=== PATIENT | female | born 1980 | race African-American/Black ===

== ENCOUNTER 2020-10-19 16:22 | Emergency (ER) | payer OTHER, SELFPAY ==
--- NOTE | ~2020-10-19 | XR_ITS ---
XR knee RT min 4V 10/19/2020 17:04 Indication: Right knee pain Procedure: 4 views right knee Comparison: No prior studies for comparison. Findings: Moderate joint effusion. Mild osteoarthritis of the knee. No fracture or traumatic malalign ment. No foreign bodies. Impression: 1: Moderate joint effusion. Reviewed, dictated and finalized at location A. Impression: 1: Moderate joint effusion.
[2020-10-19 16:28] VITALS: BP 131/90; PULSE 80; RESP 18; TEMP 36.5; O2SAT 99
[2020-10-19] MEDS: KETOROLAC (*BKC) 60 MG/2 ML VIAL IM (18:28)
[2020-10-19 19:12] VITALS: BP 131/78; PULSE 87; RESP 18; O2SAT 100
--- NOTE | 2020-10-19 19:36 | ED.LOWEXIN ---
HPI - Extremity Injury (Lower) General Chief Complaint: Extremity Injury, Lower Stated Complaint: R KNEE PAIN/SWELLING X1WK Time Seen by Provider: 10/19/20 17:39 Source: patient Mode of arrival: ambulatory Limitations: no limitations History of Present Illness HPI Narrative: This is a 39 year old female that presents to the ER for right knee pain and swelling x 1 week. No known injury or trauma. Pain is worse with movement and relieved with rest. Denies fever, erythema, warmth, or numbness. Related Data Allergies Allergy/AdvReac Type Severity Reaction Status Date / Time No Known Allergies Allergy Verified 07/28/20 12:31 Review of Systems Review of Systems: Narrative: CONSTITUTIONAL: Denies fever SKIN: Denies rash MUSCULOSKELETAL: Reports joint pain, and myalgia. NEUROLOGIC: Denies numbness All systems reviewed & are unremarkable except as noted in HPI and below PMFSH Past Medical History Medical History (Updated 10/19/20 @ 19:48 by Destiny Dominguez PA-C) BMI 37.0-37.9, adult Knee pain, right Migraine Well adult exam Surgical History Surgical History (Updated 07/28/20 @ 12:37 by Clarisa Darling) History of bilateral tubal ligation Family History Family History (Updated 07/28/20 @ 12:34 by Clarisa Darling) Other Diabetes mellitus Hypertension Social History Social History (Updated 07/28/20 @ 12:42 by Clarisa Darling) Social History: no Smoking status: Never smoker Alcohol intake: current Drinks per week: 1 Substance use: never Gender identity (if verbalized by the patient): Female Exam Narrative: Exam Narrative: GENERAL: Well-appearing, well-nourished, and in no acute distress. HEAD: Normocephalic, atraumatic. EYES: EOMI. EXTREMITIES: Normal range of motion. No erythema or warmth. Mild edema about the right knee anteriorly. Normal DP pulses. Normal sensation SKIN: Warm, dry, no rash. NEURO: No focal deficits. Alert and oriented x3. PSYCH: Normal mood and affect Course Vital Signs Vital signs: Vital Signs Temperature 97.7 F 10/19/20 16:28 Pulse Rate 80 10/19/20 16:28 Respiratory Rate 18 10/19/20 16:28 Blood Pressure 131/90 10/19/20 16:28 Pulse Oximetry 99 10/19/20 16:28 Temperature 97.7 F 10/19/20 16:28 Pulse Rate 87 10/19/20 19:12 Respiratory Rate 18 10/19/20 19:12 Blood Pressure 131/78 10/19/20 19:12 Pulse Oximetry 100 10/19/20 19:12 MDM - Extremity Injury (Lower) MDM Narrative Medical decision making narrative: Patient presents to the emergency department for right knee pain x1 week. No known injury or trauma. No erythema or warmth of the knee. She is afebrile and nontoxic-appearing. She has good range of motion in the knee. Right knee x-ray shows a moderate sized joint effusion and osteoarthritis. Patient updated on case findings. Instructed to rest, ice and take ungu-eng-ircnsml pain medication as needed. Placed in an Irineo wrap. She will be given orthopedics for follow-up. She was given warnings to return to the ER Imaging Data Radiologist's impression: ITS Impressions Knee X-Ray 10/19/20 17:06 Impression: 1: Moderate joint effusion. Critical Care Time Critical Care Time Critical Care Time: No Discharge Plan Discharge Clinical Impression: Acute pain of right knee, Effusion of knee joint right Patient Disposition: Home, Self-Care Condition: Stable Instructions: Swollen Knee Joint (ED) Additional Instructions: Return to the emergency department if you experience fever, redness and swelling of your knee, you are unable to bend your knee, or any other symptoms that are concerning to you Rest. Ice to the area. Tylenol or ibuprofen as needed for pain. Follow-up with orthopedics. Call to make an appointment Prescriptions: No Action sumatriptan succinate 6 mg/0.5 mL pen injector 6 mg subcut ONCE Qty: 1 RF: 2 sumatriptan succinate [Imitrex] 100 mg tablet See Rx Instructions PO .C
== END 2020-10-19 19:53 | disposition home or self-care (01) ==
PROVIDERS: Emergency Provider Emergency Medicine; PCP Family Medicine
DX: M25.561 Pain in right knee (principal); M25.461 Effusion, right knee
CPT/HCPCS: 73564; 96372; 99283; J1885

== ENCOUNTER 2020-11-20 08:34 | Outpatient (CLI) | payer OTHER, SELFPAY ==
[2020-11-20 09:32] LABS: Basophils Percent Auto 0.6 % (0.2-1.2); Eosinophils Absolute Auto 0.1 K/mm3 (0-0.3); Eosinophils Percent Auto 1.6 % (0-4.4); Hematocrit 41.3 % (37.0-47.0); Hemoglobin 13.1 g/dL (12.0-15.0); Immature Granulocyte Absolute 0.02 K/mm3 (0.00-0.031); Immature Granulocyte Percent A 0.3 % (0-0.5); Lymphocytes Absolute Auto 2.11 K/mm3 (0.9-3.2); Lymphocytes Percent Auto 30.8 % (18.3-44.2); Mean Corpuscular HGB Conc 31.7 g/dl (32-36); Mean Corpuscular Hemoglobin 28.2 pg (26-34); Mean Corpuscular Volume 88.8 fl (80-100); Mean Platelet Volume 9.7 fl (7.4-10.4); Monocytes Absolute Auto 0.4 K/mm3 (0.1-0.6); Monocytes Percent Auto 5.7 % (2.6-8.5); Neutrophils Absolute Auto 4.2 K/mm3 (1.3-6.7); Platelet Count Result 330 k/mm3 (150-375); Red Blood Count 4.65 M/mm3 (4.2-5.4); Red Cell Distribution Width 13.3 % (11.5-14.5); White Blood Count 6.9 K/mm3 (4.5-10.0)
[2020-11-20 09:41] LABS: Rheumatoid Factor < 8.6 IU/ML (<12)
[2020-11-20 09:42] LABS: Anion Gap 10 mmol/L (8-16); Blood Urea Nitrogen 16 mg/dL (7-17); Calcium 9.7 mg/dL (8.4-10.2); Carbon Dioxide 28 mmol/L (22-30); Chloride 104 mmol/L (98-107); Cholesterol 137 mg/dL (0-200); Estimated Glomerular Filt Rate > 60; Glucose 89 mg/dL (65-105); HDL Direct 90 mg/dL; Sodium 142 mmol/L (137-145); Triglycerides 68 mg/dL (<150)
[2020-11-20 09:46] LABS: CRP 0.7 mg/dL (<1.0); Uric Acid 4.5 mg/dL (2.5-7.5)
[2020-11-20 10:06] LABS: LDL Cholesterol Direct < 30 mg/dL
[2020-11-20 10:22] LABS: Erythrocyte Sedimentation Rate 16 mm/hr (0-20)
== END 2020-11-20 08:35 | disposition home or self-care (01) ==
PROVIDERS: PCP Family Medicine; Referring Provider Nurse Practitioner Family; Visit Provider Orthopaedic Surgery
DX: M17.0 Bilateral primary osteoarthritis of knee (principal); M06.9 Rheumatoid arthritis, unspecified; Z13.29 Encounter for screening for other suspected endocrine disorder; Z13.220 Encounter for screening for lipoid disorders; Z13.1 Encounter for screening for diabetes mellitus
CPT/HCPCS: 36415; 80048; 80061; 84443; 84550; 85025; 85652; 86038; 86140; 86430

== ENCOUNTER 2020-12-15 06:33 | Outpatient (CLI) | payer OTHER, SELFPAY ==
--- NOTE | ~2020-12-15 | CT_ITS ---
EXAMINATION: CT sinus wo con DATE: 12/15/2020 07:01 INDICATION: Sinusitis TECHNIQUE: Computed tomography (CT) of the paranasal sinuses was performed without intravenous contra st. The dose-length product was 320.10 mGy-cm. Automated exposure control and iterative reconstructio n technique were employed. COMPARISON: None FINDINGS: There is extensive mucosal thickening of the right maxillary sinus and nasopharynx. There a re surgical changes consistent with resection of the right ostiomeatal unit. Leftward nasal septal de viation. Mastoids are pneumatized. IMPRESSION: 1. Moderate sinus disease involving the right maxillary sinus and nasopharynx. Reviewed, dictated and finalized at location A.
== END 2020-12-15 06:34 | disposition home or self-care (01) ==
LOC: ANHIMG 06:39
PROVIDERS: PCP Family Medicine; Visit Provider Otolaryngology
DX: J34.89 Other specified disorders of nose and nasal sinuses (principal); J33.9 Nasal polyp, unspecified; J34.2 Deviated nasal septum; J34.3 Hypertrophy of nasal turbinates
CPT/HCPCS: 70486

== ENCOUNTER 2021-01-22 02:44 | Day surgery (SDC) | payer OTHER, SELFPAY ==
[2021-01-18 15:53] VITALS: BMI 37.5
--- NOTE | 2021-01-21 08:12 | PM.IMHP ---
H&P: HPI History of Present Illness Date/Time: 01/21/21 08:12 patient presents for planned surgical procedures no change in symptoms no change in history Chief Complaint: right sinonasal mass, nasal obstruction, sinusitis Review of Systems Constitutional: Constitutional: Denies fatigue, Denies fever(s) and Denies lethargy Eyes: Eyes: Denies blurry vision and Denies change in vision ENT: Reports as per HPI Cardiovascular: Cardiovascular: Denies chest pain Respiratory: Respiratory: Denies cough Endocrine: Endocrine: Denies fatigue Hematologic/Lymphatic: Hematologic/Lymphatic: Denies easy bleeding, Denies easy bruising and Denies lymphadenopathy Allergic/Immunologic: Allergic/Immunologic: Denies seasonal rhinorrhea [facility] Past Medical History Medical History BMI 35.0-35.9,adult BMI 36.0-36.9,adult BMI 37.0-37.9, adult Knee pain, right Migraine Osteoarthritis of right knee Well adult exam Surgical History Surgical History History of bilateral tubal ligation Family History Family History Father Diabetes mellitus Hypertension Mother Diabetes mellitus Grandparent Diabetes mellitus Social History Social History Social History: no Smoking status: Former smoker Smokeless tobacco user: dissolvable tobacco Alcohol intake: current Drinks per week: 1 Substance use: never 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 Gender identity (if verbalized by the patient): Female Spiritual care concerns: No Meds Home Medications and Allergies Home Medications Medication Instructions Recorded Confirmed Type sumatriptan succinate 100 mg tablet See Rx Instructions PO .COMPLEX #9 07/28/20 01/18/21 Rx tablet sumatriptan succinate 6 mg/0.5 mL 6 mg SUBCUT ONCE #1 ml 07/28/20 01/18/21 Rx subcutaneous pen injector phentermine 37.5 mg tablet 37.5 mg PO DAILY #20 tablet 12/25/20 01/18/21 Rx Allergies Allergy/AdvReac Type Severity Reaction Status Date / Time No Known Allergies Allergy Verified 01/18/21 15:51 Exam Const: General: cooperative, healthy appearing, comfortable, well developed and alert HENMT: Head: normal to inspection, normocephalic and atraumatic Ears: hearing grossly normal bilaterally, external ears normal, TM's normal bilaterally and EAC's normal General nose exam: Normal external nose present, Normal nares present, nasal polyps ( yellowish mass right mid/posterior), Normal nasal mucous membranes and turbinates present and Normal septum present Face and sinus: normal facial exam Mouth: Yes Normal oral and palatal mucosa present, Yes lip normal, Yes tongue normal, Yes oropharynx normal and Yes moist mucous membranes Teeth and gingiva: dentition normal and gingiva normal Throat: posterior oropharynx normal, tonsils normal and uvula midline Eyes: General: appearance normal, both eyes and all related structures Periorbital: periorbital findings normal Eyelids: eyelids normal Conjunctivae: conjunctivae normal Sclera: sclerae normal Neck: Neck: normal visual inspection, full ROM and no lymphadenopathy Thyroid: thyroid normal Lymphatic: no lymphadenopathy noted Resp: Effort & Inspection: normal respiratory effort and able to speak in complete sentences Cardio: Jugular venous distension: no JVD Neuro: Cranial nerves: Yes CN's II-XII intact bilaterally Assessment and Plan Assessment and plan (1) Nasal septal deviation: Code(s): J34.2 - Deviated nasal septum Status: Acute Assessment and Plan: plan is for the OR for image guided right-sided removal of sinonasal mass, maxillary antrostomy, possible septoplasty, possible inferior turbinate reduction, possible Stephenson lock on the right. Risks were discussed including blind
[2021-01-22] VITALS (9 sets, daily range): BP systolic 118–164; BP diastolic 65–94; PULSE 58–80; RESP 15–20; TEMP 36.5–36.8; O2SAT 97–100
--- NOTE | 2021-01-22 07:15 | WPDHPUPDATE1 ---
History and Physical Update Update Date/Time: 01/22/21 07:15 History and Physical has been reviewed, including an updated exam of the patient. There are NO changes in the patient's condition. Risks, benefits, and alternatives have been discussed and questions answered. Patient agrees to proceed with procedure.
[2021-01-22] MEDS: ACETAMINOPHEN 500 MG TABLET 1000 MG PO (09:04)
--- NOTE | 2021-01-22 09:08 | WPDANESEPPF ---
Anes - Initial Pre Proc Eval Procedure: Operation Date: 01/22/21 10:15 Proposed Procedures p Image Guided Bilateral Inferior Turbinectomy, Right Endoscopic Maxillary Antrostomy, Resection of Nasal Mass, - Thang Alejandra MD s Septoplasty - Thang Alejandra MD s Possible Right Stephenson-Dar Procedure - Thang Alejandra MD Date/Time: 01/22/21 09:08 Surgeon: Thang Alejandra MD Pre Op Diagnosis: chronic sinusitis Patient Data Age: 40 Gender: F Height: 1.57 m Weight: 93.2 kg Allergies Allergy/AdvReac Type Severity Reaction Status Date / Time No Known Allergies Allergy Verified 01/22/21 08:53 Home Medications Medication Instructions Recorded Confirmed Type sumatriptan succinate 100 mg tablet See Rx Instructions PO .COMPLEX #9 07/28/20 01/22/21 Rx tablet sumatriptan succinate 6 mg/0.5 mL 6 mg SUBCUT ONCE #1 ml 07/28/20 01/22/21 Rx subcutaneous pen injector phentermine 37.5 mg tablet 37.5 mg PO DAILY #20 tablet 12/25/20 01/22/21 Rx Patient hx anesthesia problems: none Family hx anesthesia problems: none PMFSH Past Medical History Medical History BMI 35.0-35.9,adult BMI 36.0-36.9,adult BMI 37.0-37.9, adult Knee pain, right Migraine Osteoarthritis of right knee Well adult exam Surgical History Surgical History History of bilateral tubal ligation Family History Family History Father Diabetes mellitus Hypertension Mother Diabetes mellitus Grandparent Diabetes mellitus Social History Social History Social History: no Smoking status: Former smoker Smokeless tobacco user: dissolvable tobacco Alcohol intake: current Drinks per week: 1 Substance use: never Living arrangements: with friend(s) 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 Questions were solicited and answers provided to the satisfaction of the patient/family/POA.
[2021-01-22] MEDS: LACTATED RINGERS 1,000 ML 30 ML IV CONT ×2 (09:21→11:04)
[2021-01-22] MEDS: ceFAZolin 2 GM/D5W 50 ML 2 GM/50 ML BAG IVPB (09:42)
[2021-01-22] MEDS: OXYMETAZOLINE HCL 0.05% NAS 15 ML BTL (*BKC) 15 SPRAY NASAL (10:11)
[2021-01-22] MEDS: ONDANSETRON INJ 4 MG/2 ML VIAL IV PUSH (11:32)
--- NOTE | 2021-01-22 11:33 | P.OP_ITS ---
Procedure Note - Detailed Date of Procedure 01/22/21 Pre-op Diagnosis chronic sinusitis right sinonasal mass nasal obstruction Post-op Diagnosis same Procedure Performed Right-sided maxillary antrostomy with tissue removal Right-sided resection of sinonasal mass Right inferior turbinate outfracture Surgeon Thang Alejandra MD Music Education Adjunct Professor None Anesthesia general Indications See above Description of Procedure Patient correctly identified consent verified in the preoperative holding area. The patient was brought to the operating room time-out performed. Image guidance initiated general anesthesia induced endotracheal tube secured the pat ient's airway and taped to the left lower lip. Afrin-soaked pledgets placed in the bilateral nasal passages allowed to sit for 5 minutes. Patient dry prepped prepped and draped for the aforementioned procedures. Second time-out performed. Right sinonasal mass was viewed with a 0 degree endoscope very obvious the bulk the right portion in the sinonasal passages sent for pathology. Right middle turbinate medialized. Backbiter utilized along with straight through cut micro debrider to perform right large maxillary antrostomy micro debrider as well as 70 degree scope and 60 degree curved microdebrider blade utilized to remove the sinonasal mass at this time was noted that it was pedicled from the anterior lateral maxillary sinus wall on the right. Combination of microdebrider 70 degree scope and suction Bovie electrocautery at a setting of 10 and 15 were utilized to remove the stalk and Shanique all stalk tissue as well as 1 cm around the stalk. All the hardware instrumentation was removed hemostasis was noted to be excellent. Bilateral choana suctioned of any blood. Care the patient was turned over to Anesthesiology. I performed all dictated portions of the procedure. Blood loss approximately 20 cc. There were no immediate complications. Implants None Estimated Blood Loss 20 Drains No Packing No Pathology yes Complications No immediate complications Condition stable Disposition PACU
== END 2021-01-22 13:05 | disposition home or self-care (01) ==
PROVIDERS: PCP Family Medicine; Visit Provider Otolaryngology
PROC: (CPT 31267; principal; 2021-01-22 10:15)
DX: J32.9 Chronic sinusitis, unspecified (principal); J34.89 Other specified disorders of nose and nasal sinuses; J33.9 Nasal polyp, unspecified; Z87.891 Personal history of nicotine dependence; E66.9 Obesity, unspecified; Z68.38 Body mass index [BMI] 38.0-38.9, adult
CPT/HCPCS: 31267; 30930; 88304; A9270; J0330; J0690; J1100; J2250; J2405; J2704; J3010; J7120

== ENCOUNTER 2022-12-16 13:23 | Outpatient (CLI) | payer OTHER, SELFPAY ==
[2022-12-16 14:05] LABS: Basophils Percent Auto 0.4 % (0.2-1.2); Eosinophils Absolute Auto 0.1 K/mm3 (0-0.3); Hemoglobin 12.9 g/dL (12.0-15.0); Immature Granulocyte Absolute 0.02 K/mm3 (0.00-0.031); Immature Granulocyte Percent A 0.3 % (0-0.5); Lymphocytes Absolute Auto 2.04 K/mm3 (0.9-3.2); Lymphocytes Percent Auto 29.2 % (18.3-44.2); Mean Corpuscular HGB Conc 32.3 g/dl (32-36); Mean Corpuscular Hemoglobin 28.7 pg (26-34); Mean Corpuscular Volume 89.1 fl (80-100); Mean Platelet Volume 9.7 fl (7.4-10.4); Monocytes Absolute Auto 0.4 K/mm3 (0.1-0.6); Monocytes Percent Auto 5.4 % (2.6-8.5); Neutrophils Absolute Auto 4.5 K/mm3 (1.3-6.7); Neutrophils Percent Auto 63.7 % (45.5-73.1); Platelet Count Result 309 k/mm3 (150-375); Red Blood Count 4.49 M/mm3 (4.2-5.4); Red Cell Distribution Width 13.1 % (11.5-14.5)
== END 2022-12-16 13:24 | disposition home or self-care (01) ==
LOC: ANHSURGERY 13:25
PROVIDERS: PCP Family Medicine; Visit Provider Obstetrics & Gynecology
DX: N92.6 Irregular menstruation, unspecified (principal); Z01.818 Encounter for other preprocedural examination
CPT/HCPCS: 36415; 85025; 86850; 86900; 86901

== ENCOUNTER 2022-12-23 00:47 | Day surgery (SDC) | payer OTHER, SELFPAY ==
[2022-12-15 11:31] VITALS: BMI 25.0
--- NOTE | 2022-12-15 11:46 | PC.NURSE ---
Report to the Outpatient Waiting Room, entrance under the green pavilion located off [facility], at time 6:00 on date 12/23/22. Planned Procedure Time: 7:30. Time changes happen often and if your time is changed the preop area will call you the afternoon before. - You and your visitor will be asked to self-screen and do not enter if you have any COVID symptoms. - A mask is optional within the hospital at this time. Patients may have clear liquids (water, carbonated beverages, clear teas, apple juice) until 3 hours prior to surgery (4:30) with a maximum of 20 ounces. - No food from midnight until time of surgery Take the following medications with a SIP of water the morning of surgery: TOPIRAMATE DO NOT STOP ANY OF YOUR OTHER PRESCRIPTION MEDICATIONS PRIOR TO SURGERY ?EXCEPT THE FOLLOWING Medications to discontinue per physician: VITAMINS/SUPPLEMENTS Date to take last dose: 12/19/22 Please no make-up, nail armenian, hairspray, perfume, deodorant, or body powder the day of surgery. No jewelry (including any body piercings) or valuables the day of surgery, leave them at home. Please take a shower or bath the night before, or the morning of, surgery with an antibacterial soap. Wear comfortable, loose fitting clothing. - Jewelry must be removed prior to entering the operating room. Rings and piercings that are not removed may be cut off. - The hospital will not accept responsibility for valuables. - Please leave all valuables, including medications, at home the day of surgery. If you are going home after surgery, a licensed patient transportation driver must drive you home. - NO public transportation without another adult if you receive anesthesia. - We recommend that an adult stay with you for 24 hours following discharge. - We also recommend that you do not drive, make important decision, drink alcoholic beverages, or take any drugs that were not prescribed by your health care provider for at least 24 hours after your discharge time. Follow any additional instructions given to you from your surgeon. If you or anyone in your household have experienced Covid symptoms in the past week, please notify your surgeon or the nurse liaison at the phone number below for possible testing. Telephone instructions given to PT - NICOLETTE WILSON and asked if any additional questions and then verbalized understanding. Patient advised to call surgeon office or pre surgery nurse liaison [phone] if any additional questions.
--- NOTE | 2022-12-20 16:12 | PM.IMHP ---
H&P: HPI History of Present Illness Date/Time: 12/20/22 16:12 Chief Complaint: Bleeding and pain Narrative: this is a 42-year-old female admitted for robotic hysterectomy and bilateral salpingectomy secondary to bleeding. She has known submucosal fibroid. She continues to bleed was given options of hormonal manipulation ablation and possibly an IUD. She refused all the rest and since she has enlarged fibroid uterus like to have this removed in completion. She understands this will make her permanently infertile although she has had a previous tubal ligation. Risks and benefits of this procedure reviewed including not exclusive of , aspiration pneumonia, bleeding, transfusion, perforation under to bowel, bladder, ureters or other internal organs with need for open laparotomy. She received the ACOG handout entitled hysterectomy as well as the de [facility] handout. She had all questions answered. She asked to proceed PMFSH Past Medical History Medical History BMI 27.0-27.9,adult BMI 35.0-35.9,adult BMI 36.0-36.9,adult BMI 37.0-37.9, adult Knee pain, right Migraine Osteoarthritis of right knee Well adult exam Surgical History Surgical History History of bilateral tubal ligation History of nasal surgery Family History Family History Father Diabetes mellitus Hypertension Heart disease Mother Diabetes mellitus Rheumatoid arthritis Grandparent Diabetes mellitus Sibling No problems noted. Social History Social History Social History: no Smoking status: Never smoker Second hand tobacco smoke exposure: No Alcohol intake: current Drinks per week: 1 Substance use: never Substance use type: does not use Lack of Transportation: No Lack of Food: Never True Current Housing: I Have Housing Concerned About Future Housing: No Difficulty Paying Gas/Electric Bills: No Difficulty Paying for Meds: YES Currently Unemployed: YES Education: Associate Degree Difficulty w/ Childcare or Family Care: YES Living arrangements: with family Additional living arrangements comments: CHILDREN Occupation/Education: occupation 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 [employer] Gender identity (if verbalized by the patient): Female Spiritual care concerns: No Meds Home Medications and Allergies Home Medications Medication Instructions Recorded Confirmed Type sumatriptan succinate 100 mg See Rx Instructions PO .COMPLEX #9 05/19/21 12/15/22 Rx tablet (Imitrex) tabs topiramate 100 mg tablet (Topamax) 100 mg PO DAILY #30 tabs 11/08/22 12/15/22 Rx biotin 800 mcg tablet 800 mcg PO DAILY 12/15/22 12/15/22 History cholecalciferol (vitamin D3) 50 50 mcg PO DAILY 12/15/22 12/15/22 History mcg (2,000 unit) tablet (Vitamin D3) multivitamin 1 tablet PO DAILY 12/15/22 12/15/22 History phentermine 37.5 mg tablet 37.5 mg PO DAILY 12/15/22 12/15/22 History vitamin E 670 mg (1,000 unit) 670 mg PO DAILY 12/15/22 12/15/22 History capsule Allergies Allergy/AdvReac Type Severity Reaction Status Date / Time No Known Allergies Allergy Verified 12/15/22 11:27 Exam Const: General: cooperative, healthy appearing and comfortable Nutritional Appearance: average body habitus Orientation/consciousness: oriented to person, oriented to place and oriented to time HENMT: Head: normal to inspection Resp: Effort & Inspection: normal respiratory effort Cardio: Rate: regular rate Rhythm: regular rhythm Heart sounds: S1 normal heart sound present and S2 normal heart sound present GI: Inspection: normal to inspection : External Female Exam: normal external appearance Speculum Exam - Vagina: normal appearance of the vagina Speculum Exam - Cervi
[2022-12-23] VITALS (12 sets, daily range): BP systolic 101–137; BP diastolic 44–77; PULSE 58–76; RESP 12–18; TEMP 36.2–36.9; O2SAT 100
--- NOTE | 2022-12-23 06:32 | WPDHPUPDATE1 ---
History and Physical Update Update Date/Time: 12/23/22 06:32 History and Physical has been reviewed, including an updated exam of the patient. There are NO changes in the patient's condition. Risks, benefits, and alternatives have been discussed and questions answered. Patient agrees to proceed with procedure.
--- NOTE | 2022-12-23 06:46 | WPDANESEPPF ---
Anes - Initial Pre Proc Eval Procedure: Operation Date: 12/23/22 07:30 Proposed Procedures p Robotic Assisted Total Vaginal Hysterectomy with Bilateral Salpingectomy - Angel Fournier MD Date/Time: 12/23/22 06:46 Surgeon: Angel Fournier MD Pre Op Diagnosis: Pain, Irrg Bleeding, Fibroids Patient Data Age: 42 Gender: F Height: 1.57 m Weight: 62.15 kg Allergies Allergy/AdvReac Type Severity Reaction Status Date / Time No Known Allergies Allergy Verified 12/15/22 11:27 Home Medications Medication Instructions Recorded Confirmed Type sumatriptan succinate 100 mg See Rx Instructions PO .COMPLEX #9 05/19/21 12/15/22 Rx tablet (Imitrex) tabs topiramate 100 mg tablet (Topamax) 100 mg PO DAILY #30 tabs 11/08/22 12/15/22 Rx biotin 800 mcg tablet 800 mcg PO DAILY 12/15/22 12/15/22 History cholecalciferol (vitamin D3) 50 50 mcg PO DAILY 12/15/22 12/15/22 History mcg (2,000 unit) tablet (Vitamin D3) multivitamin 1 tablet PO DAILY 12/15/22 12/15/22 History phentermine 37.5 mg tablet 37.5 mg PO DAILY 12/15/22 12/15/22 History vitamin E 670 mg (1,000 unit) 670 mg PO DAILY 12/15/22 12/15/22 History capsule hydrocodone 5 mg-acetaminophen 325 1 tablet PO Q4H PRN pain #30 tabs 12/23/22 Rx mg tablet Patient hx anesthesia problems: none Family hx anesthesia problems: none Results Review: All pre-operative results and documents have been reviewed as part of the pre-operative evaluation. [facility] Past Medical History Medical History Knee pain, right Migraine Osteoarthritis of right knee Well adult exam Surgical History Surgical History History of bilateral tubal ligation History of nasal surgery Family History Family History Father Diabetes mellitus Hypertension Heart disease Mother Diabetes mellitus Rheumatoid arthritis Grandparent Diabetes mellitus Sibling No problems noted. Social History Social History Social History: no Smoking status: Never smoker Second hand tobacco smoke exposure: No Alcohol intake: current Drinks per week: 1 Substance use: never Substance use type: does not use Lack of Transportation: No Lack of Food: Never True Current Housing: I Have Housing Concerned About Future Housing: No Difficulty Paying Gas/Electric Bills: No Difficulty Paying for Meds: YES Currently Unemployed: YES Education: Associate Degree Difficulty w/ Childcare or Family Care: YES Living arrangements: with family Additional living arrangements comments: CHILDREN Occupation/Education: occupation 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 Informed Consent: The patient's anesthetic plan and its attendant risks and benefits were discussed with the patient/family/POA. Questions were solicited and answers provided to the satisfaction of the patient/family/POA.
[2022-12-23] MEDS: ACETAMINOPHEN 500 MG TABLET 1000 MG PO (06:48)
[2022-12-23] MEDS: LACTATED RINGERS 1,000 ML 30 ML IV CONT ×2 (06:50→08:39)
[2022-12-23] MEDS: KETOROLAC 15 MG/ML VIAL (*BKC) IV PUSH (06:55)
[2022-12-23] MEDS: SCOPOLAMINE 1.5 MG PATCH TRANSDERM (07:14)
[2022-12-23] MEDS: ceFAZolin 2 GM/D5W 50 ML 2 GM/50 ML BAG IVPB (07:24)
--- NOTE | 2022-12-23 08:30 | P.OP_ITS ---
Procedure Note - Detailed Date of Procedure 12/23/22 Pre-op Diagnosis Pain, Irrg Bleeding, Fibroids Post-op Diagnosis Same Procedure Performed Robotic total vaginal hysterectomy and bilateral salpingectomy Surgeon Angel Fournier MD Anesthesia General Indications this 42-year-old uterine symptomatic fibroids Findings enlarged uterus. Tubes status post tubal ligation. Normal-appearing ovaries Description of Procedure patient was prepped draped sterile fashion placed in the dorsal lithotomy position. Under excellent general endotracheal anesthesia weighted speculum placed in posterior fornix vagina. Anterior lip of the cervix grasped with single-tooth tenaculum. Uterus sounded to 10cm. Serial dilatation with fragmented dilators performed followed by passage of 8. JOSSELIN and the 2. 0.5 cold cup. Next the 16 Greenlandic catheter was placed in the bladder and the single- tooth was removed. The weighted speculum was removed and gloves were changed. A supraumbilical incision made in the Veress needle passed in the abdomen. Abdomen filled with CO2 gas [id number]. The 8mm trocar advanced in the abdomen. Downside visualized. No injury seen. Patient placed in Trendelenburg at20? and right left lateral quadrant incisions made. 8Mm trocars advanced under direct visualization assuring no injury. A right upper quadrant incision made the 8mm trocar advanced under direct visualization assuring no injury. The robot was docked. Attention was turned to the middle school counselor. The left round ligament was grasped, burned, cut. Anteriorly a bladder flap was formed by sharply dissecting the p eritoneum and reflecting this laterally caudally to the opposite round ligament which was clamped, burned, cut. Next the left fallopian tube was sharply dissected away from the ovarian complex and left attached to its uterine origin. This was repeated on the contralateral side with the right tube. The left utero-ovarian ligament was skeletonized conserving the left ovary. This was clamped, burned, cut. This was brought to the level of previously cut round ligament. In like fashion conserving the right ovary, the utero-ovarian ligament was clamped, burned, cut brought to level previously cut round ligament. Next the cardinal broad ligaments on the left were serially skeletonized clamping burning cutting until the tortuous blood vessels on left could be seen. These were individually clamped, burned, cut. In similar fashion on the right cardinal broad ligaments were skeletonized clamping burning itching and hugging the cervix and uterus until the uterine vessels could be seen right. These were individually clamped, burned,. Excellent blanching the uterus was noted at that point in a colpotomy incision made. Cervix uterus tubes removed through the vagina. Vagina then closed with continuous running 0V lock from lateral edge to lateral edge back to the midline. Irrigation undertaken until clear blood loss estimated to be [id number]. The robot was undocked. The gas removed from the abdomen. Patient was returned to supine level and the incisions then closed with 4-0 Monocryl and glue. Patient was awakened went to recovery in satisfactory condition. All sponge, needle, instrument counts were correct. There were no immediate complications noted Estimated Blood Loss 25 Drains No Packing No Pathology Yes Complications No immediate complications Condition Stable Disposition PACU
[2022-12-23] MEDS: fentaNYL CITRATE INJ (*CRX) 100 MCG/2 ML VIAL 25 MCG IV PUSH ×4 (09:15→09:40)
--- NOTE | 2022-12-23 10:00 | ADMGEN ---
This patient, Ibis Smith, was admitted to OB 2nd Floor Room 289-00. Patient/family oriented to hospital policies and general routines including ID bracelet, bed and alarms, visiting hours, pain management, procedures, bathroom and other care routines, personal items, smoking policy, room service/diet, and visiting hours. Information on how to activate the Rapid Response Team has been discussed. Patient/Family are encouraged to report perceived risks to care and to ask questions if they do not understand what they are told or what they should do.
[2022-12-23] MEDS: DEXTROSE 5%/LACTATED RINGERS 1,000 ML 125 ML IV CONT (10:23)
[2022-12-23] MEDS: KETOROLAC 30 MG/ML VIAL (*BKC) IV PUSH (10:26)
[2022-12-23] MEDS: ENOXAPARIN 40 MG/0.4 ML SYRINGE SUB-Q (10:26)
--- NOTE | 2022-12-23 10:52 | PM.DS ---
DS: Admitting Diagnosis Discharge Date 12/24/2022 Admitting Diagnosis symptomatic fibroids DS: Discharge Diagnosis Discharge Diagnosis (1) Uterine fibroid: Code(s): D25.9 - Leiomyoma of uterus, unspecified Status: Acute (2) Vaginal bleeding: Code(s): N93.9 - Abnormal uterine and vaginal bleeding, unspecified Status: Acute (3) Pelvic pain: Code(s): R10.2 - Pelvic and perineal pain Status: Acute DS: Summary Hospital Course Reason for hospitalization: patient was admitted for robotic total vaginectomy and bilateral salpingectomy Hospital Course: patient underwent the above-named procedure on 12/23/2022. Her hospital course was unremarkable. She remained afebrile. She was up, voiding without difficulty, ambulating, eating regular diet, and generally without complaints. Time Spent with Patient Time attestation: Total time spent providing and/or coordinating discharge services: Exam Const: General: cooperative, healthy appearing and comfortable Nutritional Appearance: average body habitus Orientation/consciousness: oriented to person, oriented to place and oriented to time HENMT: Head: normal to inspection Resp: Effort & Inspection: normal respiratory effort Cardio: Rate: regular rate Rhythm: regular rhythm Heart sounds: S1 normal heart sound present and S2 normal heart sound present GI: Inspection: normal to inspection and incision ( Wounds are clean dry and intact) DS: Data Data Completed and Pending Pending studies at discharge: Pending at discharge 12/23/22 08:00 Surgical [PTH] Routine Discharge Plan Discharge Patient Disposition: Home, Self-Care Stand Alone Forms: General Discharge Instructions Follow-up/Referrals: Angel Matthews MD [Physician] - Discharge Medications: New hydrocodone-acetaminophen 5-325 mg tablet 1 tablet PO Q4H PRN (Reason: pain) Qty: 30 0RF No Action sumatriptan succinate [Imitrex] 100 mg tablet See Rx Instructions PO .COMPLEX Qty: 9 2RF Rx Instructions: take 1 tab at onset of headache; if no relief, may repeat 1 tab after at least 2 hrs; max = 2 tabs/24 hrs PO multivitamin Tablet 1 tablet PO DAILY vitamin E 670 mg (1,000 unit) Capsule 670 mg PO DAILY biotin 800 mcg Tablet 800 mcg PO DAILY phentermine 37.5 mg tablet 37.5 mg PO DAILY cholecalciferol (vitamin D3) [Vitamin D3] 50 mcg (2,000 unit) Tablet 50 mcg PO DAILY topiramate [Topamax] 100 mg tablet 100 mg PO DAILY Qty: 30 3RF
[2022-12-23] MEDS: HYDROcodone/acetaminophen (*CRX) 10-325 MG TABLET 1 TAB PO (15:03)
[2022-12-23] MEDS: SIMETHICONE 80 MG TAB.CHEW PO ×2 (15:03→21:00)
[2022-12-23] MEDS: DOCUSATE SODIUM 100 MG CAPSULE PO ×2 (17:35→21:01)
[2022-12-24] MEDS: IBUPROFEN 600 MG TABLET PO ×2 (00:01→07:20)
[2022-12-24] MEDS: HYDROcodone/acetaminophen (*CRX) 5-325 MG TABLET 1 TAB PO ×2 (00:25→07:20)
[2022-12-24 03:30] VITALS: BP 114/67; PULSE 55; RESP 16; TEMP 36.4; O2SAT 100
[2022-12-24 04:41] LABS: Basophils Percent Auto 0.4 % (0.2-1.2); Eosinophils Absolute Auto 0.1 K/mm3 (0-0.3); Eosinophils Percent Auto 0.6 % (0-4.4); Hematocrit 34.2 % (37.0-47.0); Immature Granulocyte Absolute 0.04 K/mm3 (0.00-0.031); Immature Granulocyte Percent A 0.4 % (0-0.5); Lymphocytes Absolute Auto 2.89 K/mm3 (0.9-3.2); Mean Corpuscular HGB Conc 32.2 g/dl (32-36); Mean Corpuscular Hemoglobin 29.1 pg (26-34); Mean Corpuscular Volume 90.5 fl (80-100); Mean Platelet Volume 10.6 fl (7.4-10.4); Monocytes Absolute Auto 0.5 K/mm3 (0.1-0.6); Monocytes Percent Auto 4.8 % (2.6-8.5); Neutrophils Absolute Auto 7.2 K/mm3 (1.3-6.7); Neutrophils Percent Auto 66.8 % (45.5-73.1); Platelet Count Result 255 k/mm3 (150-375); Red Blood Count 3.78 M/mm3 (4.2-5.4); Red Cell Distribution Width 13.2 % (11.5-14.5); White Blood Count 10.7 K/mm3 (4.5-10.0)
[2022-12-24] MEDS: DOCUSATE SODIUM 100 MG CAPSULE PO (07:20)
[2022-12-24 07:23] VITALS: BP 109/63; PULSE 73; RESP 18; TEMP 37.4; O2SAT 100
[2022-12-24] MEDS: ENOXAPARIN 40 MG/0.4 ML SYRINGE SUB-Q (09:47)
--- NOTE | 2022-12-24 10:56 | PM.GYNPNOP ---
SOFTWARE INTEGRATION DEVELOPER - A/P Assessment and plan (1) Uterine fibroid: Code(s): D25.9 - Leiomyoma of uterus, unspecified Status: Acute Assessment and Plan: A: POD#1, doing well. P: Home to f/u 2 weeks. (2) Vaginal bleeding: Code(s): N93.9 - Abnormal uterine and vaginal bleeding, unspecified Status: Acute (3) Pelvic pain: Code(s): R10.2 - Pelvic and perineal pain Status: Acute Postoperative Procedures: Procedures Operation Date: 12/23/22 07:30 Actual Procedure Side Surgeon p Robotic Assisted Total Vaginal Hysterectomy with Bilateral Salpingectomy Bilateral Angel Fournier MD Postoperative day: 1 Postoperative status: doing well Postoperative plan: routine post-op care Time Spent With Patient Time with patient: less than 15 minutes SOFTWARE INTEGRATION DEVELOPER- PN:Subj Post-Op Subjective Date/time seen: 12/24/22 10:56 Interval history: Pain OK. Tolerating diet. Voiding. Would like to go home. Exam Narrative: AVSS I/O OK ABD soft, nontender. Incisions c/d/i. EXT nontender SOFTWARE INTEGRATION DEVELOPER - PN: Obj Data Vital Signs Vital Signs: Vital Signs - 24 hr 12/23/22 15:00 12/23/22 15:00 12/23/22 20:15 Temperature 36.9 C 36.8 C Pulse Rate 73 65 Respiratory Rate 16 16 Blood Pressure 109/63 114/65 Pulse Oximetry 100 100 Oxygen Delivery Room Air 12/24/22 03:30 12/24/22 07:23 12/24/22 07:23 Temperature 36.4 C 37.4 C Pulse Rate 55 L 73 Respiratory Rate 16 18 Blood Pressure 114/67 109/63 Pulse Oximetry 100 100 Oxygen Delivery Room Air Intake/Output Intake/Output: Intake & Output 12/21/22 12/22/22 12/23/22 12/24/22 23:59 23:59 23:59 23:59 Intake Total 2390 240 Output Total 1630 400 Balance 760 -160 Meds/Results Medications: Active Medications Generic Name Dose Route Start Last Admin Trade Name Freq PRN Reason Stop Dose Admin Hydrocodone Bitart/Acetaminophen 1 tab 12/23/22 09:55 12/24/22 07:20 Hydrocodone/Acetaminophen (*Crx) 5-325 Mg Tablet PO 1 tab Q3H PRN Administration Pain Rated 5 or Less Hydrocodone Bitart/Acetaminophen 1 tab 12/23/22 09:55 12/23/22 15:03 Hydrocodone/Acetaminophen (*Crx) 10-325 Mg Tablet PO 1 tab Q3H PRN Administration Pain Rated 6 or Greater Docusate Sodium 100 mg 12/23/22 09:55 12/24/22 07:20 Docusate Sodium 100 Mg Capsule PO 100 mg BID TWIN Administration Enoxaparin Sodium 40 mg 12/23/22 09:55 12/24/22 09:47 Enoxaparin 40 Mg/0.4 Ml Syringe SUB-Q 40 mg DAILY TWIN Administration Ibuprofen 600 mg 12/23/22 09:55 12/24/22 07:20 Ibuprofen 600 Mg Tablet PO 600 mg Q6H PRN Administration Cramping Ketorolac Tromethamine 30 mg 12/23/22 09:55 12/23/22 10:26 Ketorolac 30 Mg/Ml Vial (*Bkc) IV PUSH 12/28/22 09:54 30 mg Q6H PRN Administration Pain Rated 4-6 Naloxone HCl 0.1 mg 12/23/22 09:55 Naloxone Hcl 0.4 Mg/Ml Vial IV PUSH Q2M PRN Respiratory rate less than 10 Ondansetron HCl 4 mg 12/23/22 09:55 Ondansetron Inj 4 Mg/2 Ml Vial IV PUSH Q6H PRN Nausea And Vomiting Simethicone 80 mg 12/23/22 09:55 12/23/22 21:00 Simethicone 80 Mg Tab.Chew PO 80 mg Q2H PRN Administration Gas Labs 12/24/22 03:09 Labs: Laboratory Results - last 24 hr 12/24/22 03:09 WBC 10.7 H RBC 3.78 L Hgb 11.0 L Hct 34.2 L MCV 90.5 MCH 29.1 MCHC 32.2 RDW 13.2 Plt Count 255 MPV 10.6 H Immature Gran % (Auto) 0.4 Neut % (Auto) 66.8 Lymph % (Auto) 27.0 Dewitt % (Auto) 4.8 Eos % (Auto) 0.6 Baso % (Auto) 0.4 Lymph # (Auto) 2.89 Dewitt # (Auto) 0.5 Eos # (Auto) 0.1 Baso # (Auto) 0.0 Abs Immat Gran (auto) 0.04 H Absolute Neuts (auto) 7.2 H Absolute Nucleated RBC 0.0 Nucleated RBC % 0.0
--- NOTE | 2022-12-24 10:57 | PM.DS ---
DS: Admitting Diagnosis Discharge Date 12/24/22 Admitting Diagnosis Pelvic pain Uterine fibroid Vaginal bleeding DS: Discharge Diagnosis Discharge Diagnosis (1) Uterine fibroid: Code(s): D25.9 - Leiomyoma of uterus, unspecified Status: Acute (2) Vaginal bleeding: Code(s): N93.9 - Abnormal uterine and vaginal bleeding, unspecified Status: Acute (3) Pelvic pain: Code(s): R10.2 - Pelvic and perineal pain Status: Acute DS: Summary Hospital Course Hospital Course: She was admitted for scheduled surgery. Was able to go home on POD1. Time Spent with Patient Time attestation: Total time spent providing and/or coordinating discharge services: DS: Data Data Completed and Pending Pending studies at discharge: Pending at discharge 12/23/22 08:00 Surgical [PTH] Routine Labs on day of discharge: Labs from last 24 hours 12/24/22 03:09 WBC 10.7 H RBC 3.78 L Hgb 11.0 L Hct 34.2 L MCV 90.5 MCH 29.1 MCHC 32.2 RDW 13.2 Plt Count 255 MPV 10.6 H Immature Gran % (Auto) 0.4 Neut % (Auto) 66.8 Lymph % (Auto) 27.0 [place] % (Auto) 4.8 Eos % (Auto) 0.6 Baso % (Auto) 0.4 Lymph # (Auto) 2.89 [place] # (Auto) 0.5 Eos # (Auto) 0.1 Baso # (Auto) 0.0 Abs Immat Gran (auto) 0.04 H Absolute Neuts (auto) 7.2 H Absolute Nucleated RBC 0.0 Nucleated RBC % 0.0 Discharge Plan Discharge Patient Disposition: Home, Self-Care Discharge Instructions: Nothing in vagina for six weeks. Call or return if temperature above 100.4? F, increased abdominal pain, increased vaginal bleeding or any new problems. Stand Alone Forms: General Discharge Instructions Follow-up/Referrals: Angel Matthews MD [Physician] - 2 Weeks Discharge Medications: New hydrocodone-acetaminophen 5-325 mg tablet 1 tablet PO Q4H PRN (Reason: pain) Qty: 30 0RF ondansetron 4 mg tablet,disintegrating 4 mg PO Q6-8H PRN (Reason: nausea and vomiting) Qty: 20 0RF Continued sumatriptan succinate [Imitrex] 100 mg tablet See Rx Instructions PO .COMPLEX Qty: 9 2RF Rx Instructions: take 1 tab at onset of headache; if no relief, may repeat 1 tab after at least 2 hrs; max = 2 tabs/24 hrs PO multivitamin Tablet 1 tablet PO DAILY vitamin E 670 mg (1,000 unit) Capsule 670 mg PO DAILY biotin 800 mcg Tablet 800 mcg PO DAILY phentermine 37.5 mg tablet 37.5 mg PO DAILY cholecalciferol (vitamin D3) [Vitamin D3] 50 mcg (2,000 unit) Tablet 50 mcg PO DAILY topiramate [Topamax] 100 mg tablet 100 mg PO DAILY Qty: 30 3RF
== END 2022-12-24 11:40 | disposition home or self-care (01) ==
LOC: ANHSURGERY 06:33 → ANHOB2 09:59
PROVIDERS: PCP Family Medicine; Visit Provider Obstetrics & Gynecology
PROC: (CPT 58552; principal; 2022-12-23 07:30)
DX: N93.9 Abnormal uterine and vaginal bleeding, unspecified (principal); D25.1 Intramural leiomyoma of uterus; R10.2 Pelvic and perineal pain
CPT/HCPCS: 58552; S2900; 36415; 85025; 86850; 86900; 86901; 88307; 99199; A9270; J0690; J1100; J1170; J1650; J1885; J2250; J2405; J2704; J3010; J7030; J7120; J7121

== ENCOUNTER 2024-12-31 13:18 | Emergency (ER) | payer BC, SELFPAY ==
--- NOTE | ~2024-12-31 | XR_ITS ---
Exam: Left fifth finger x-ray minimum 2 views. CLINICAL HISTORY: Left distal fifth digit pain and laceration. TECHNIQUE: 3 images of the left fifth digit were obtained. Comparisons: None. FINDINGS: Bone mineralization is within normal limits. No fracture. No dislocation. Soft tissue swelling about the left fifth digit. No radiopaque foreign body identified. Ring projects over the proximal phalanx of the fourth digit which limits evaluation. IMPRESSION: 1. No fracture identified. 2. No radiopaque foreign body identified. Reviewed, dictated and finalized at location A.
[2024-12-31 13:24] VITALS: BP 140/86; PULSE 77; RESP 16; TEMP 36.8; O2SAT 100
--- OUTSIDE RECORDS SUMMARY | 2024-12-31 13:37 | XMS_ITS | Clinical Summary ---
Author Organization [facility] Address [address] [place] [address] Phone Care Team Providers Care Human Resources Hr Generalist Name Role Phone Efraín Araya MD Primary Care Provider + Allergies No known active allergies Medications HYDROcodone-acet aminophen (NORCO) 5-325 mg tablet Take 1 Tab by mouth every 4 hours as needed for Pain. 18 Tab None 06/29/2013 Active PHENTERMINE HCL (PHENTERMINE ORAL) Take by mouth. Active SUMATRIPTAN SUCCINATE ORAL Take by mouth. 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 Gender Identity Not on file Sexual Orientation Not on file Last Filed Vital Signs Vital Sign Reading Time Taken Comments Blood Pressure 130/76 09/28/2016 2:43 PM CDT Pulse - - Temperature 36.4 C (97.6 F) 09/28/2016 2:43 PM CDT Respiratory Rate 18 09/28/2016 2:43 PM CDT Oxygen Saturation 100% 09/28/2016 2:43 PM CDT Inhaled Oxygen Concentration - - Weight 76.2 kg (168 lb) 09/28/2016 2:43 PM CDT Height 157.5 cm (5' 2) 09/28/2016 2:43 PM CDT Body Mass Index 30.73 09/28/2016 2:43 PM CDT Plan of Treatment Health Maintenance Due Date Last Done Comments HPV VACCINES (1 - 3-dose series) 11/03/1994 DTAP/TDAP/TD VACCINES (1 - Tdap) 11/03/1998 HEPATITIS B VACCINES (1 of 3 - 19+ 3-dose series) 10/20 HPV/Cotest (21-29) 11/03/2000 CERVICAL CANCER SCREENING 11/03/2009 HPV/Cotest (30-65) 11/03/2009 PAP SMEAR 11/03/2009 BREAST CANCER SCREENING 2019 COLORECTAL SCREENING 11/03/2024 Colorectal Cancer Screening 11/03/2024 FIT-DNA Q 3 years 11/03/2024 FIT/FOBT Q 1 year 11/03/2024 Flex Sig/CT Colonography Q 5 years 11/03/2024 INFLUENZA VACCINE (#1) 2024 Insurance BS BLUE [employer]/TRUE BLUE PPO Care Teams Human Resources Hr Generalist Relationship Specialty Start Date End Date Efraín Araya MD [address] [place] [address] PCP - General Family Practice 06/29/13
--- OUTSIDE RECORDS SUMMARY | 2024-12-31 13:38 | XMS_ITS | Clinical Summary ---
Author Organization [facility] Address [address] [place] [address] Care Team Providers Care Health Promotion Specialist Name Role Phone Efraín Araya MD Primary Care Provider [phone] Source Comments [facility],non-owned Affiliates and Associated Physician Practices is amultiple site organization consisting of ambulatory clinics and hospital sitesin [place], [place], [place] and [place]. This disclosure is being madepursuant to the Care Everywhere program and may not contain all information available regarding this patient. Last updated 18.[facility] Allergies No known active allergies Medications * Be aware that medications may not be up to date on this document. Alwaysverify current medications with the patient. Kqiaylmm-Clt-Xp -FA ( VITAMIN WITH IRON) tablet Take 1 tablet by mouth once daily Active aspirin (ASPIRIN) 81 MG chew tablet Take 81 mg by mouth once daily Active oxyCODONE-aceta minophen (PERCOCET) 5-325 MG tabletIndicatio ns:Pain Take 1-2 tablets by mouth every 4 hours as needed for Pain Reasons: Pain 40 tablet 8 Active ibuprofen (MOTRIN) 600 MG tablet Take 1 tablet by mouth every 6 hours as needed for Pain 60 tablet 2 8 Active docusate sodium (COLACE) 100 MG capsuleIndicati ons:Constipatio n Take 1 capsule by mouth 2 times daily Reasons: Constipation 60 capsule 2 8 Active Active Problems Problem Noted Date Diagnosed Date Advanced maternal age, primi in second trimester, antepartum 10/06/2017 Supervision of high-risk of elderly mu ltigravida 10/06/2017 Dichorionic diamniotic twin in second trimester 09/06/2017 Short cervical length during 8 Chronic hypertension with superimposed preeclamp den Resolved Problems Problem Noted Date Diagnosed Date Resolved Date Elevated blood pressure read ing without diagnosis of hypertension 11/27/2017 Immunizations Immunization Administration Dates Next Due TDAP (7yrs+) 11/30/2017 Family History Medical History Relation Name Comments CAD (Coronary Artery Disease) Maternal Grandmother Diabetes Maternal Grandmother Arthritis - Rheumatoid Mother Relation Name Status Comments Maternal Grandmother Mother Social History Tobacco Use Types Packs/Day Years Used Date Smoking Tobacco: Never Smokeless Tobacco: Never Alcohol Use Standard Drinks/Week Comments Yes 0 (1 standard drink = 0.6 oz pur e alcohol) socially Comments No Sex and Gender Information Value Date Recorded Sex Assigned at Not on file 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 Gender Identity Not on file Sexual Orientation Not on file Last Filed Vital Signs Vital Sign Reading Time Taken Comments Blood Pressure 148/86 12/10/2017 12:05 PM CDT Pulse 92 12/10/2017 12:05 PM CDT Temperature 36.7 C (98.1 F) 12/10/2017 12:05 PM CDT Respiratory Rate 18 12/10/2017 12:0 5 PM CDT Oxygen Saturation 98% 12/10/2017 5:20 AM CDT Inhaled Oxygen Concentration - - Weight 102.9 kg (226 lb 12.8 oz) 12/10/2017 5:25 AM CDT Height 157.5 cm (5' 2) 12/08/2017 6:43 AM CDT Body Mass Index 41.48 12/08/2017 6:43 AM CDT Plan of Treatment Health Maintenance Due Date Last Done Comments COLOGUARD (AGES 45-75) - COL ON CA SCREENING 1979 COLON MONITORING 1979 COLONOSCOPY - COLON CA SCREENING 1979 CT COLONOGRAPHY - COLON CA SCREENING 1979 Colorectal Cancer Screening 1979 FIT - COLON CA SCREENING 1979 FLEX SIG - COLON CA SCREENING 1979 LIPID TESTING 1979 MAMMOGRAM 1979 HIV SCREENING 11/03/1994 HEPATITIS C SCREENING 10/30/1997 HEPATITIS B VACCINE (1 of 3 - 19+ 3-dose series) 11/03/1998 PAP SMEAR 11/03/2000 HPV VACCINE (1 - 3-dose SCDM series) 11/03/2006 COVID-19 VACCINE (1 - 2023-2 5 season) 2024 DEPRESSION SCREENING 05/22/2024 INFLUENZA VACCINE (#1) 2025 DTAP/TDAP/TD VACCINES (2 - T d or Tdap) 12/01/2027 11/30/2017 ZOSTER VACCINE (1 of 2) 11/03/2029 HIB VACCINE Aged Out No longer eligi ble based on patient's age to complete this topic MENINGOCOCCAL (Group B) VACC INE SHARED DECISION-MAKING Aged Out No longer eligibl e based on patient's age to complete this topic MENINGOCOCCAL GROUPS A/C/Y/W VACCINE Aged Out No longer eligible b ased on patient's age to complete this topic PNEUMOCOCCAL VACCINE Aged Out No long er eligible based on patient's age to complete this topic Insurance TRE [facility] [address] [place] [address] AETNA ANTHEM AETNA ANTHEM Advance Directives * Full Code (Latest Code Status on File) Date Activated Date Inactivated Comments 12/06/2017 6:32 AM 12/10/2017 4:21 PM * Full Code Date Activated Date Inactivated Comments 12/05/2017 6:22 AM 12/06/2017 6:32 AM * Full Code Date Activated Date Inactivated Comments 11/20/2017 6:06 AM 12/05/2017 6:22 AM Care Teams Health Promotion Specialist Relationship Specialty Start Date End Date Efraín Araya MD [facility] [address] PCP - General Internal Medicine 09/06/17
--- NOTE | 2024-12-31 14:24 | ED.WOUNDLAC ---
HPI - Wound/Laceration General Chief Complaint: Wound/Laceration Stated Complaint: left 5th finger lac Time Seen by Provider: 12/31/24 14:00 Source: patient Mode of arrival: ambulatory Limitations: no limitations History of Present Illness HPI narrative: This is a 44 year old female that presents to the ER for laceration to the left 5th finger. Reports she got her finger caught up in a metal chair. She believes she is up to date on tetanus vaccination. Denies decreased ROM. Related Data Home Medications ?Medication ?Instructions ?Recorded ?Confirmed ?Last Taken ?Type multivitamin 1 tablet PO DAILY 12/15/22 04/15/24 12/20/22 History Allergies Allergy/AdvReac Type Severity Reaction Status Date / Time No Known Allergies Allergy Verified 04/15/24 10:53 Review of Systems Review of Systems: All systems reviewed & are unremarkable except as noted in HPI and below PMFSH Past Medical History Medical History (Updated 12/31/24 @ 15:56 by Destiny Dominguez PA-C) Uterine fibroid Vaginal bleeding Acute sinus infection Nasal septal deviation Nasal obstruction Mass of nasal sinus Screening for thyroid disorder Screening for diabetes mellitus Osteoarthritis of right knee Knee pain, right Migraine Well adult exam Surgical History Surgical History History of hysterectomy History of nasal surgery History of sinus surgery History of bilateral tubal ligation Family History Family History Father Diabetes mellitus Hypertension Heart disease Mother Diabetes mellitus Rheumatoid arthritis Grandparent Diabetes mellitus Sibling No problems noted. Social History Social History Social History: no Smoking status: Never smoker Second hand tobacco smoke exposure: No Alcohol intake: current Drinks per week: 1 Substance use: never Substance use type: does not use Lack of Transportation: No Lack of Food: Never True Current Housing: I Have Housing Concerned About Future Housing: No Difficulty Paying Gas/Electric Bills: No Difficulty Paying for Meds: YES Currently Unemployed: YES Education: Associate Degree Difficulty w/ Childcare or Family Care: YES Living arrangements: with family Additional living arrangements comments: CHILDREN Occupation/Education: occupation 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 HEAD: Normocephalic, atraumatic. EYES: EOMI. EXTREMITIES: Normal range of motion. No edema. Left fifth finger with 1cm linear laceration involving distal portion of nail. Normal radial pulse SKIN: Warm, dry, no rash. NEURO: No focal deficits. Alert and oriented x3. PSYCH: Normal mood and affect Course Vital Signs Vital signs: Vital Signs Temperature 98.2 F 12/31/24 13:24 Pulse Rate 77 12/31/24 13:24 Respiratory Rate 16 12/31/24 13:24 Blood Pressure 140/86 12/31/24 13:24 Pulse Oximetry 100 12/31/24 13:24 Oxygen Delivery Room Air 12/31/24 13:24 Temperature 98.2 F 12/31/24 13:24 Pulse Rate 77 12/31/24 13:24 Respiratory Rate 16 12/31/24 13:24 Blood Pressure 140/86 12/31/24 13:24 Pulse Oximetry 100 12/31/24 13:24 Oxygen Delivery Room Air 12/31/24 13:24 Procedures Laceration Laceration 1: Date: 12/31/24 Site: hand Side (If applicable): left Size (cm): 1 Description: linear Depth: simple, single layer Local Anesthetic: lidocaine 1% Amount of anesthesia used (mL): 2 Pre-repair: wound explored and irrigated ====== Skin Level ====== Skin layer closed with: other (fast absorbing gut) Size (cm): 5-0 Number of sutures: 2 Technique: simple, interrupted ====== Subcutaneous Layer ====== ====== Muscle Layer ====== ====== Tendon Layer ====== MDM - Wound/Laceration MDM Narrative Medical decision making narrative: Patient presents to the emergency department for laceration to the left 5th finger. Patient is neurovascularly intact. Left 5th finger x-ray without acute osseous abnormality. Wound was irrigated and closed with sutures. She was educated on further wound care. Reports she is up-to-date on tetanus vaccination. She is to follow up with primary care doctor. She was given warnings to return to the ER Differential Diagnosis Differential diagnosis: Likely laceration Imaging Data Radiologist's impression: ITS Impressions Finger X-Ray 12/31/24 15:26 IMPRESSION: 1. No fracture identified. 2. No radiopaque foreign body identified. Critical Care Time Critical Care Time Critical Care Time: No Discharge Plan Discharge Clinical Impression: Laceration of finger nail bed Qualifiers: Encounter type: initial encounter Qualified Code(s): S61.319A - Laceration without foreign body of unspecified finger with damage to nail, initial encounter Patient Disposition: Home Condition: Stable Instructions: Care For Your Stitches (ED), Laceration (ED) Additional Instructions: Return to the emergency department if you experience fever, redness or swelling of your wound, abnormal drainage from your wound, or any other symptoms that are concerning to you. Apply antibiotic ointment daily. Do not soak the wound. Clean with mild soap and water daily. Take oral antibiotic as prescribed Follow-up with your primary care doctor for wound check next week Patient Language: Mauritanian Prescriptions: New cephalexin 500 mg tablet 500 mg PO Q8H 5 Days Qty: 15 0RF fluconazole 150 mg tablet 150 mg PO ONCE Qty: 1 0RF Rx Instructions: as a single dose No Action sumatriptan succinate 6 mg/0.5 mL cartridge 6 mg subcut ONCE Qty: 1 2RF Rx Instructions: may repeat dose once in 1 hour if not relieved sumatriptan succinate [Imitrex] 100 mg tablet See Rx Instructions PO .COMPLEX Qty: 9 2RF Rx Instructions: take 1 tab at onset of headache; if no relief, may repeat 1 tab after at least 2 hrs; max = 2 tabs/24 hrs PO sumatriptan succinate 6 mg/0.5 mL pen injector 6 mg subcut ONCE Qty: 1 2RF Rx Instructions: may repeat dose once in 1 hour if not relieved multivitamin Tablet 1 tablet PO DAILY topiramate [Topamax] 100 mg tablet 100 mg PO DAILY Qty: 30 3RF Follow-up/Referrals: Chapincito Womack MD [Primary Care Provider] -
[2024-12-31] MEDS: HYDROcodone/acetaminophen (*CRX) 5-325 MG TABLET 1 TAB PO (14:34)
--- OUTSIDE RECORDS SUMMARY | 2024-12-31 15:14 | XMS_ITS | Clinical Summary ---
Author Organization [facility] [employer] [facility] Address [address] [place] [address] Care Team Providers Care Pocket Grinder Operator Name Role Phone Efraín Araya MD Primary Care Provider [phone]- [phone] [facility],non-owned Affiliates and Associated Physician Practices is amultiple site organization consisting of ambulatory clinics and hospital sitesin [place], [place], [place] and [place]. This disclosure is being madepursuant to the Care Everywhere program and may not contain all information available regarding this patient. Last updated 18.[facility] [facility] Allergies No known active allergies Medications * Be aware that medications may not be up to date on this document. Alwaysverify current medications with the patient. 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 Gender Identity Not on file Sexual Orientation [...] to complete this topic Insurance TRE [facility] [address] [place] [address] AETNA ANTHEM AETNA ANTHEM Advance Directives * Full Code (Latest Code Status on File) Date Activated Date Inactivated Comments 12/06/2017 6:32 AM 12/10/2017 4:21 PM * Full Code Date Activated Date Inactivated Comments 12/05/2017 6:22 AM 12/06/2017 6:32 AM * Full Code Date Activated Date Inactivated Comments 11/20/2017 6:06 AM 12/05/2017 6:22 AM Care Teams Pocket Grinder Operator Relationship Specialty Start Date End Date Efraín Araya MD [facility] [address] PCP - General Internal Medicine 09/06/17
--- OUTSIDE RECORDS SUMMARY | 2024-12-31 15:14 | XMS_ITS | Clinical Summary ---
Author Organization [facility] Address [address] 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
== END 2024-12-31 16:12 | disposition home or self-care (01) ==
PROVIDERS: Emergency Provider Physician Assistant; PCP Family Medicine
DX: S61.319A Laceration without foreign body of unspecified finger with damage to nail, initial encounter (principal); W45.8XXA Other foreign body or object entering through skin, initial encounter
CPT/HCPCS: 12001; 73140; 99283; A9270

== ENCOUNTER 2025-04-25 00:54 | Day surgery (SDC) | payer BC, SELFPAY ==
--- OUTSIDE RECORDS SUMMARY | 2018-02-06 02:40 | XMS_ITS | Continuity of Care Document ---
Author Organization [facility] Address [address] [place] [address] Phone Care Team Providers Care Pictures Editor Name Role Phone Efraín Araya MD Unavailable Unavailab le Allergies, Adverse Reactions, Alerts Substance Reaction Status Criticality No Known Drug Allergies Other Active No I nformation Medications Medication Instructions Dosage Effective Dates (start - stop) Status Comments SUMATRIPTAN SUCC 50 MG TABLET TAKE 1 TABLET BY MOUTH AT ONSET OF MIGRAINE,MAY REPEAT AFTER 2 HOURS MAX 4 TABS/24 HOURS NEEDED - Active SUMATRIPTAN 6 MG/0.5 ML INJECT INJECT 6MG SUBCUTANEOUSLY DIRECTED - Active meloxicam 15 mg tablet take 1 tablet by oral route every day Take with food 15 MG - Active Imitrex STATdose Kit Refill 6 mg/0.5 mL subcutaneous cartridge Inject 6 mg subcutaneously once as directed - Active SUMATRIPTAN SUCC 50 MG TABLET TAKE 1 TABLET BY MOUTH AT ONSET OF MIGRAINE,MAY REPEAT AFTER 2 HOURS MAX 4 TABS/24 HOURS NEEDED - No Longer Active Advance Directives Directive Yes / No Effective Date File Name No Information Encounters Encounter Description Practice Location Reason(s) For Visit Diagnoses Date Provider Providers Copied on Encounter [facility], [address], [place], [place], [address] , tel:[phone] [place] No Information Sep-1 8-201 8 Foersterling Efraín. [address], [address], [place], [place], [address], [place]. tel:[phone] [facility], [address], [place], [place], [address] , [place] tel: [phone] [place] No Information 7 Foersterling Efraín. [address] [place] [address], [facility] [address], [place], [place], [address], [place]. tel:[phone] [facility], [address], [place], [place], [address] , [place] tel: [phone] [place] Migraine, unspecified, not intractable, without status migrainosusEncou nter for screening for lipoid disorders Jan- 7 [facility]. [address] [place] [address], [facility] [address], [place], [place], [address], [place]. tel:[phone] Referring Provider: Efraín minaya, [address] [place] [address], [place], [address] . tel:[phone] [facility], [address], [place], [place], [address] , [place] tel: [phone] [place] Migraine, unspecified, not intractable, without status migrainosusHisto ry of motion sickness 7 [facility]. [address] [place] [address], [facility] [address], [place], [place], [address], [place]. tel:[phone] Referring Provider: Efraín minaya, [address] [place] [address] [address], [place], [address] . tel:[phone] [facility], [address], [place], [place], [address] , [place] tel:[phone] [place] Strain of right levator scapulae muscle, initial encounter 7 Foersterling Efraín. [address] [place] [address], [facility] [address], [place], [place], [address], [place]. tel:[phone] Referring Provider: Efraín minaya, [address] [place] [address], [place], [address] . tel:[phone] [facility], [address], [place], [place], [address] , tel: [phone] [place] Acute upper respiratory infection 8 6 [facility]. [address] [place] [address], [facility] [address], [place], [place], [address], . tel:[phone] Referring Provider: Efraín minaya, [address] [place] [address], [place], [address] . tel:[phone] [facility], [address], [place], [place], [address] , tel: [phone] [place] Ingrowing left great toenail 7 6 [facility]. [address] [place] [address], [place], [place], [address], . tel:[phone] Referring Provider: Efraín minaya, [address] [place] [address], [place], [address] . tel:[phone] [facility], [address], [place], [place], [address] , tel: [phone] [place] No Information 6 Forenee Efraín. [address] [place] [address], [facility] [address], [place], [place], [address], . tel:[phone] [facility], [address], [place], [place], [address] , [place] tel: [phone] [place] Positional vertigo, unspecified lateralityViral URI 6201 6 [facility]. [address] [place] [address], [place], [place], [address], [place]. tel:[phone] Referring Provider: Efraín minaya, [address] [place] [address], [place], [address] . tel:[phone] [facility], [address], [place], [place], [address] , tel: [phone] [place] Encounter for general adult medical examination with abnormal findingsMigraine , unspecified, not intractable, without status migrainosusScree dione for diabetes mellitusObesity, unspecified 6 Quiana Kenny. [address] [place] [address], [facility] [address], [place], [place], [address], . tel:[phone] Referring Provider: Efraín minaya, [address] [place] [address], [place], [address] . tel:[phone] [facility], [address], [place], [place], [address] , [place] tel: [phone] [place] Acute maxillary sinusitis, recurrence not specifiedAcute bronchitis, unspecified organism Basarabekristin Destiny. [address] [place] [address], [address], [place], [place], [address], . tel:[phone] Referring Provider: Efraín minaya, [address] [place] [address], [place], [address] . tel:[phone] [facility], [address], [place], [place], [address] , [place] tel: [phone] [place] Acute sinusitis 4 Oscar Carty. [address] [place] [address], [facility] [address], [place], [place], [address]. tel:[phone] Referring Provider: Efraín minaya, [address] [place] [address], [place], [address] . tel:[phone] [facility], [address], [place], [place], [address] , [place] tel: [phone] [place] Routine Medical ExamObesity, MorbidMigraineSc reening for diabetes mellitusRoutine Medical Exam 4 Quiana Kenny. [address] [place] [address], [facility] [address], [place], [place], [address], [place]. tel:[phone] Referring Provider: Efraín minaya, [address] [place] [address], [place], [address] . tel:[phone] [facility], [address], [place], [place], [address] , [place] tel: [phone] [place] Acute otitis media, leftAcute upper respiratory infection 3 [facility]. [address], [place], [place], [address], [place]. tel:[phone] Referring Provider: Efraín minaya, [address], [place], [address] . tel:[phone] [facility], [address], [place], [place], [address] , [place] tel: [phone] [place] Acute bronchitis 3 [facility] Destiny. [address], [facility] [address], [place], [place], [address], [place]. tel:[phone] Referring Provider: Efraín minaya, [address] [place] [address], [place], [address] . tel:[phone] [facility], [address], [place], [place], [address] , [place] tel: [phone] [place] Morbid obesityKidney StoneMigraine headache 2 Quiana Kenny. [address] [place] [address], [address], [place], [place], [address], [place]. tel:[phone] Referring Provider: Efraín minaya, [address] [place] [address] [address], [place], [address] . tel:[phone] [facility], [address], [place], [place], [address] , [place] tel: [phone] [facility] [place] Kidney stone 2 Olsen Tom. [address] , [facility] [address], [place], [address], [place]. tel:[phone] Referring Provider: Efraín minaya, [address] [place] [address] [address], [place], [address] . tel:[phone] [facility], [address], [place], [place], [address] , [place] tel:[phone] [place] Acute sinusitisCommon migraine with intractable migraine, so statedMorbid obesity 2 Stephan Casarez. [address], [facility] [address], [place], [place], [address], [place]. tel:[phone] Referring Provider: Efraín minaya, [address] [place] [address], [place], [address] . tel:[phone] [facility], [address], [place], [place], [address] , [place] tel: [phone] [place] Swelling of limbPain in limbAdverse reaction to tetanus vaccine 2 Renato Garcia. [address] [place] [address], [place] [address], [place], [place], [address]. tel:[phone] Referring Provider: Stephany minaya, [address], [place], [address]. tel:[phone] [facility], [address], [place], [place], [address] , [place] tel:[phone] [place] Morbid obesityRoutine general medical examination at a health care facilityMorbid obesityCommon migraine with intractable migraine, so statedNonspecifi c elevation of levels of transaminase or lactic acid dehydrogenase (ldh)NEED FOR PROPHYLACTIC VACCINATION WITH COMBINED DIPHTHERIA-TETAN US-PERTUSSIS (DTP) (DTAP) VACCINERoutine general medical examination at a health care facility 2 Quiana Kenny. [address] [place] [address], [place] [address], [place], [place], [address], [place]. tel:[phone] Referring Provider: Efraín minaya, [address] [place] [address], [place], [address] . tel:[phone] [facility], [address], [place], [place], [address] , [place] tel:[phone] [place] SPECIAL SCREENING FOR MALIGNANT NEOPLASMS, OTHER SITES 2 Yvette Hammond. [address] [place] [address], [place] [address], [place], [place], [address], [place]. tel:[phone] [facility], [address], [place], [place], [address] , [place] tel: [phone] [place] Common migraine with intractable migraine, so statedMorbid obesity 3-201 1 Steven Aiken. [address] [place] [address], [place] [address], [place], [place], [address], [place]. tel:[phone] Referring Provider: Efraín minaya, [address] [place] [address], [place], [address] . tel:[phone] [facility], [address], [place], [place], [address] , [place] tel: [phone] [place] ACUTE SINUSITIS NOS 1-201 0 Foersterling Efraín. [address] [place] [address], [place], [place], [address], [place]. tel:[phone] [facility], [address], [place], [place], [address] , [place] tel: [phone] [place] SCREEN LIPOID DISORDERS Sep- 5-200 9 Foersterling Efraín. [address] [place] [address], [place], [place], [address], [place]. tel:[phone] [facility], [address], [place], [place], [address] , [place] tel: [phone] [place] MGRN WO AURA W NTR MGRN 2-200 9 Foersterling Efraín. [address] [place] [address], [place] [address], [place], [place], [address], [place]. tel:[phone] [facility], [address], [place], [place], [address] , [place] tel: [phone] [place] ACUTE URI NOSACUTE PHARYNGITIS Apr- 4-200 9 Foersterling Efraín. [address] [place] [address], [place] [address], [place], [place], [address], [place]. tel:[phone] [facility], [address], [place], [place], [address] , tel: [phone] [place] OBESITY NOSROUTINE MEDICAL EXAM 8200 9 Quiana Kenny. [address], [address], [place], [place], [address], [place]. tel:[phone] Family History Family Member Type Diagnosis Age At Onset Brother, uncle Problem (finding) asthma Mother Problem (finding) migraine Grandmother Problem (finding) coronary arterioscleros is Father Problem (finding) hypertension Problem (finding) Family history of CVA, unknown CA Grandparents Problem (finding) Diabetes mellitus Mother Problem (finding) Diabetes mellitus Maternal aunt Problem (finding) breast cancer Father Problem (finding) Diabetes mellitus Problem (finding) No family history of Ca ncer, colon Immunizations Vaccine Date Status Comments Tdap administered Note: [facility] [id number] ; Source: New Immunization Record Payers Payer name Insurance type Covered alliance party ID Authoriza tion(s) BC[employer] I[facility] [id number] Social History Type Description Quantity Date Captured Comments Sex Female Smoking Status No Information Chief Complaint And Reason For Visit No Information Reason For Referral Reason For Referral No Information History Of Present Illness Encounter Date Complaint History Of Prese nt Illness No Information Functional Status Date Functional Assessmen t No Information Medications Administered Medication Instructions Dosage Effective Dates (start - stop) Status Comments No Drug Therapy Prescribed Instructions Date Instruction Additional Infor mation No Information Assessments Type Assessment Date No Information Patient Care Teams Name Effective Dates (start - stop) Status Members No Information
[2025-04-03 13:39] VITALS: BMI 24.7
--- OUTSIDE RECORDS SUMMARY | 2025-04-25 00:57 | XMS_ITS | Clinical Summary ---
Author Organization [facility] Address [address] 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 Gender Identity Not on file Sexual Orientation [...] Health Maintenance Due Date Last Done Comments DTAP/TDAP/TD VACCINES (1 - Tdap) 11/03/1998 HEPATITIS B VACCINES (1 of 3 - 19+ 3-dose series) 10/20 HPV/Cotest (21-29) 11/03/2000 HPV VACCINES (1 - 3-dose SCDM series) 11/03/2006 CERVICAL CANCER SCREENING 11/03/2009 HPV/Cotest (30-65) 11/03/2009 PAP SMEAR 11/03/2009 BREAST CANCER SCREENING 2019 COLORECTAL SCREENING 11/03/2024 Colorectal Cancer Screening 11/03/2024 FIT-DNA Q 3 years 11/03/2024 FIT/FOBT Q 1 year 11/03/2024 Flex Sig/CT Colonography Q 5 years 11/03/2024 INFLUENZA VACCINE (#1) 2024 Insurance [employer]/TRUE [employer] PPO Care Teams Stock Sheets Cleaner Inspector Relationship Specialty Start Date End Date Efraín Araya MD [address] [place] [id number] PCP - General Family Practice 06/29/13
--- OUTSIDE RECORDS SUMMARY | 2025-04-25 00:57 | XMS_ITS | Clinical Summary ---
Author Organization [facility] [address] [place] [address] Care Team Providers Care Buckle Stringer Name Role Phone Pcp, No Primary Care Provider [phone] Allergies No known active allergies Medications topiramate (TOPAMAX) 50 MG tablet TAKE 1 TABLET BY MOUTH EVERY DAY 09/04/2021 Active Social History Tobacco Use Types Packs/Day Years Used Date Smoking Tobacco: Never Smokeless Tobacco: Never Tobacco Cessation:Counseling Given: Yes Comments No Sex and Gender Information Value Date Recorded Sex Assigned at Not on file Legal Sex Female 11:24 AM EDT Gender Identity Not on file Sexual Orientation Not on file Last Filed Vital Signs Vital Sign Reading Time Taken Comments Blood Pressure 124/80 09/18/2021 11:54 AM CDT Pulse 90 09/18/2021 11:54 AM CDT Temperature 36.7 C (98 F) 09/18/2021 11:54 AM CDT Respiratory Rate 20 09/18/2021 11:54 AM CDT Oxygen Saturation 98% 09/18/2021 11:54 AM CDT Inhaled Oxygen Concentration - - Weight 62.6 kg (138 lb) 04/20/2023 11:55 AM GYPSUM BLOCK SETTER Height 157.5 cm (5' 2) 12/28/2022 2:04 PM CDT Body Mass Index 25.24 12/28/2022 2:04 PM CDT Plan of Treatment Not on file Medical Devices Not on file Insurance [employer] Care Teams Buckle Stringer Relationship Specialty Start Date End Date Pcp, No PCP - General Family Medicine 09/16/21
--- OUTSIDE RECORDS SUMMARY | 2025-04-25 00:57 | XMS_ITS | Clinical Summary ---
Author Organization [facility] [employer] Address [address] [place] [address] Care Team Providers Care Mill Crane Operator Name Role Phone Efraín Araya MD Primary Care Provider [phone] Source Comments [facility],non-owned Affiliates and Associated Physician Practices is amultiple site organization consisting of ambulatory clinics and hospital sitesin [place] and [place]. This disclosure is being madepursuant to the Care Everywhere program and may not contain all information available regarding this patient. Last updated 18.[facility] [employer] Allergies No known active allergies Medications * Be aware that medications may not be up to date on this document. Alwaysverify current medications with the patient. 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 Gender Identity Not on file Sexual Orientation [...] of 3 - 19+ 3-dose series) 11/03/1998 Cervical Cancer Screening 11/03/2000 PAP SMEAR 11/03/2000 HPV VACCINE (1 - 3-dose SCDM series) 11/03/2006 PAP with HPV 11/03/2009 DEPRESSION SCREENING 05/22/2024 COVID-19 VACCINE (1 - 2024-2 6 season) 2025 INFLUENZA VACCINE (#1) 2025 DTAP/TDAP/TD VACCINES (2 [...] age to complete this topic Insurance [facility] [address] [place] [address] A[employer] ANTHEM AETNA ANTHEM Advance Directives * Full Code (Latest Code Status on File) Date Activated Date Inactivated Comments 12/06/2017 6:32 AM 12/10/2017 4:21 PM * Full Code Date Activated Date Inactivated Comments 12/05/2017 6:22 AM 12/06/2017 6:32 AM * Full Code Date Activated Date Inactivated Comments 11/20/2017 6:06 AM 12/05/2017 6:22 AM Care Teams Mill Crane Operator Relationship Specialty Start Date End Date Efraín Araya MD [address] [phone] PCP - General Internal Medicine 09/06/17
[2025-04-25 12:59] VITALS: BP 122/77; PULSE 70; RESP 20; TEMP 36.8; O2SAT 100
[2025-04-25] MEDS: LACTATED RINGERS 1,000 ML 150 ML IV CONT (13:11)
--- NOTE | 2025-04-25 13:32 | P.PNAN_ITS ---
Anes - Initial Pre Proc Eval Procedure: Operation Date: 04/25/25 14:00 Proposed Procedures p Screening Colonoscopy - Fer Park MD Date/Time: 04/25/25 13:32 Surgeon: Fer Park MD Pre Op Diagnosis: Screening Patient Data Age: 44 Gender: F Height: 1.57 m Weight: 64.8 kg Last Vital Signs Temp 98.2 F 04/25/25 12:59 Pulse 70 04/25/25 12:59 Resp 20 04/25/25 12:59 BP 122/77 04/25/25 12:59 Pulse Ox 100 04/25/25 12:59 O2 Del Method Room Air 04/25/25 12:59 Allergies Allergy/AdvReac Type Severity Reaction Status Date / Time No Known Allergies Allergy Verified 04/25/25 12:56 Home Medications ?Medication ?Instructions ?Recorded ?Confirmed ?Type multivitamin 1 tablet PO DAILY 12/15/22 1 06/26/24 History sumatriptan succinate 6 mg/0.5 mL 6 mg (0.5 mL) subcut ONCE #1 mL 04/15/24 04/25/25 Rx subcutaneous cartridge (refill) topiramate 100 mg tablet (Topamax) 100 mg PO DAILY #30 tabs 02/23/25 04/25/25 Rx sumatriptan succinate 100 mg See Rx Instructions PO .C OMPLEX #9 02/27/25 04/25/25 Rx tablet (Imitrex) tabs Patient hx anesthesia problems: none Family hx anesthesia problems: none Results Review: All pre-operative results and documents have been reviewed as part of the pre- operative evaluation. [facility] Past Medical History Medical History Screening for breast cancer Screening for colon cancer Uterine fibroid Vaginal bleeding Acute sinus infection Nasal septal deviation Nasal obstruction Mass of nasal sinus Screening for thyroid disorder Screening for diabetes mellitus Osteoarthritis of right knee Knee pain, right Migraine Well adult exam Surgical History Surgical History History of hysterectomy History of nasal surgery History of sinus surgery History of bilateral tubal ligation Family History Family History Father Diabetes mellitus Hypertension Heart disease Mother Diabetes mellitus Rheumatoid arthritis Grandparent Diabetes mellitus Sibling No problems noted. Social History Social History Social History: no Smoking status: Never smoker Second hand tobacco smoke exposure: No Alcohol intake: never Drinks per week: 1 Substance use: never Substance use type: does not use Lack of Transportation: No Lack of Food: Never True Current Housing: I Have Housing Concerned About Future Housing: No Difficulty Paying Gas/Electric Bills: No Difficulty Paying for Meds: YES Currently Unemployed: YES Education: Associate Degree Difficulty w/ Childcare or Family Care: YES Living arrangements: alone Additional living arrangements comments: CHILDREN Occupation/Education: occupation 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 Overall excellent health, no cp or sob w 1-2 fos. Informed Consent: The patient's anesthetic plan and its attendant risks and benefits were discussed with the patient/family/POA. Questions were solicited and answers provided to the satisfaction of the patient/family/POA.
--- NOTE | 2025-04-25 13:41 | PM.IMHP2 ---
H&P: HPI History of Present Illness Date/Time: 04/25/25 13:41 Chief Complaint: Screening colonoscopy Narrative: This is the patient's first colonoscopy. There are no GI symptoms and there is no family history of colorectal cancer. Review of Systems Review of Systems: All systems reviewed & are unremarkable except as noted in HPI and below PMFSH Past Medical History Medical History Screening for breast cancer Screening for colon cancer Uterine fibroid Vaginal bleeding Acute sinus infection Nasal septal deviation Nasal obstruction Mass of nasal sinus Screening for thyroid disorder Screening for diabetes mellitus Osteoarthritis of right knee Knee pain, right Migraine Well adult exam Surgical History Surgical History History of hysterectomy History of nasal surgery History of sinus surgery History of bilateral tubal ligation Family History Family History Father Diabetes mellitus Hypertension Heart disease Mother Diabetes mellitus Rheumatoid arthritis Grandparent Diabetes mellitus Sibling No problems noted. Social History Social History Social History: no Smoking status: Never smoker Second hand tobacco smoke exposure: No Alcohol intake: never Drinks per week: 1 Substance use: never Substance use type: does not use Lack of Transportation: No Lack of Food: Never True Current Housing: I Have Housing Concerned About Future Housing: No Difficulty Paying Gas/Electric Bills: No Difficulty Paying for Meds: YES Currently Unemployed: YES Education: Associate Degree Difficulty w/ Childcare or Family Care: YES Living arrangements: alone Additional living arrangements comments: CHILDREN Occupation/Education: occupation 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 Gender identity (if verbalized by the patient): Female Spiritual care concerns: No Meds Home Medications and Allergies Home Medications ?Medication ?Instructions ?Recorded ?Confirmed ?Type multivitamin 1 tablet PO DAILY 12/15/22 04/25/25 History sumatriptan succinate 6 mg/0.5 mL 6 mg (0.5 mL) subcut ONCE #1 mL 04/15/24 04/25/25 Rx subcutaneous cartridge (refill) topiramate 100 mg tablet (Topamax) 100 mg PO DAILY #30 tabs 02/23/25 04/25/25 Rx sumatriptan succinate 100 mg See Rx Instructions PO .COMPLEX #9 02/27/25 04/25/25 Rx tablet (Imitrex) tabs Allergies Allergy/AdvReac Type Severity Reaction Status Date / Time No Known Allergies Allergy Verified 04/25/25 12:56 Vital Signs Vital Signs - 24 hr 04/25/25 12:59 Temperature 98.2 F Pulse Rate 70 Respiratory Rate 20 Blood Pressure 122/77 Pulse Oximetry 100 Oxygen Delivery Room Air Exam Const: General: cooperative and healthy appearing Resp: Effort & Inspection: normal respiratory effort and able to speak in complete sentences Auscultation: clear to auscultation bilaterally Cardio: Rate: regular rate Rhythm: regular rhythm GI: Inspection: normal to inspection GI Palp: No No hepatosplenomegaly present Auscultation: normal bowel sounds Rectal Exam: deferred Skin: General skin exam: normal color Psych: Appearance: grossly normal Mental Status: mental status grossly normal Assessment and Plan Assessment and plan (1) Screening for colon cancer: Code(s): Z12.11 - Encounter for screening for malignant neoplasm of colon Status: Acute Assessment and Plan: The patient is deemed a good candidate for the procedure. Consent signed. Will proceed. Prior Studies I have reviewed the following patient records and this information was taken into consideration when formulating the assessment and plan.: previous labs, previous ER visits, previous hospitalizations and previous clinic visits
[2025-04-25 14:05] VITALS: BP 110/53; PULSE 82; RESP 26; O2SAT 100
[2025-04-25 14:15] VITALS: BP 104/59; PULSE 73; RESP 22; O2SAT 100
[2025-04-25 14:20] VITALS: BP 112/66; PULSE 73; RESP 22; O2SAT 100
== END 2025-04-25 14:38 | disposition home or self-care (01) ==
PROVIDERS: PCP Family Medicine; Referring Provider Nurse Practitioner Adult Health; Visit Provider Internal Medicine Gastroenterology
PROC: 0DJD8ZZ Inspection of Lower Intestinal Tract, Via Natural or Artificial Opening Endoscopic (ICD-10-PCS; CPT 45378; principal; 2025-04-25 14:00)
DX: Z12.11 Encounter for screening for malignant neoplasm of colon (principal)
CPT/HCPCS: 45378; J2003; J2704; J7120